=== PATIENT | female | born 1985 | race Caucasian/White ===

== ENCOUNTER 2019-03-08 05:36 | Inpatient (IN) ==
[2019-02-22 14:57] LABS: Basophils # 0.1 10*3/uL (0.0-0.2); Basophils % 0.6 % (0.0-0.8); Eosinophils # 0.3 10*3/uL (0.0-0.87); Eosinophils % 3.2 % (0.00-10.9); Hematocrit 39.9 VOL% (35.7-47.0); Immature Granulocytes % 0.2 %; Immature Granulocytes Absolute 0.02 #; Lymphocytes # 3.1 10*3/uL (1.4-4.0); Lymphocytes % 32.8 % (21.3-54.2); Mean Corpuscular HGB Conc 32.6 GM/DL (32-36); Mean Corpuscular Volume 89.5 FL (87-102); Mean Platelet Volume 10.4 FL (9.6-12.0); Neutrophils % 56.2 % (38.7-73.9); Platelet Count 302 T/CUMM (130-400); Red Blood Count 4.46 MC/CUMM (3.8-5.5); Red Cell Distribution Width 12.2 % (9.3-17.3); White Blood Count 9.3 T/CUMM (4-12)
[2019-02-22 15:13] LABS: Apearance,Urine Slightly Hazy (Clear); Bacteria,Urine Occasional /HPF (Few); Bilirubin,Urine Negative (Negative); Blood, Urine Moderate mg/dL (Negative); Glucose,Urine (UA) Negative (Negative); Ketones,Urine Negative (Negative); Mucus,Urine Occasional /LPF (Occasional); Nitrite,Urine Negative (Negative); Protein,Urine Negative; RBC,Urine 7 /HPF (0-4); Squamous Epithelial Cell,Urine Few /HPF (0-10); Urine Color Yellow (Yellow); Urine Specific Gravity 1.017 (1.001-1.035); Urine Urobilinogen < 2.0 EU/DL (0.2-1.0); WBC,Urine 4 /HPF (0-6)
[2019-02-22 15:15] LABS: Calcium 8.3 MG/DL (8.5-10.1); Osmolality,Calculated 283.3 MOS/KG (273-304)
[2019-03-08] MEDS ORDERED: ALVIMOPAN 12 MG CAPSULE ONE (06:05)
[2019-03-08] MEDS ORDERED: cefTRIAXone 1,000 MG VIAL ONE (06:05)
[2019-03-08] MEDS ORDERED: ALVIMOPAN 12 MG CAPSULE PO ONE (06:30)
[2019-03-08] MEDS ORDERED: cefTRIAXone 1,000 MG in SYRINGE 1 EACH IV ONE (06:30)
[2019-03-08] MEDS ORDERED: LACTATED RINGERS 1,000 ML IV SCH (07:00)
[2019-03-08] MEDS ORDERED: diphenhydrAMINE 50 MG/1 ML VIAL IV PRN (09:13)
[2019-03-08] MEDS ORDERED: HYDROmorphone PCA 30 MG/30 ML SYRINGE IV SCH (09:30)
[2019-03-08 09:43] LABS: Apearance,Urine CLEAR (Clear); Bilirubin,Urine Negative (Negative); Blood, Urine Small mg/dL (Negative); Glucose,Urine (UA) Negative (Negative); Ketones,Urine Negative (Negative); Nitrite,Urine Negative (Negative); Protein,Urine Negative; RBC,Urine 1 /HPF (0-4); Urine Color Colorless (Yellow); Urine Specific Gravity 1.006 (1.001-1.035); Urine Urobilinogen < 2.0 EU/DL (0.2-1.0); WBC,Urine <1 /HPF (0-6)
[2019-03-08] MEDS ORDERED: propofoL 200 MG/20 ML VIAL IV ONE (09:44)
[2019-03-08] MEDS ORDERED: SEVOFLURANE 1 UNIT/15 MINUTE INH ONE (09:44)
[2019-03-08] MEDS ORDERED: ONDANSETRON 4 MG/2 ML VIAL IV PRN (09:44)
[2019-03-08] MEDS ORDERED: LIDOCAINE 2% 5 ML VIAL ONE (09:44)
[2019-03-08] MEDS ORDERED: MIDAZOLAM 2 MG/2 ML VIAL ONE (09:45)
[2019-03-08] MEDS ORDERED: DEXAMETHASONE 4 MG/1 ML VIAL ONE (09:45)
[2019-03-08] MEDS ORDERED: fentaNYL 100 MCG/2 ML VIAL ONE (09:45)
[2019-03-08] MEDS ORDERED: ePHEDrine 50 MG/ML AMP ONE (09:45)
[2019-03-08] MEDS ORDERED: GLYCOPYRROLATE 0.4 MG/2 ML VIAL ONE (09:46)
[2019-03-08] MEDS ORDERED: PHENYLEPHRINE 1 MG/10 ML SYRINGE IV ONE (09:46)
[2019-03-08] MEDS ORDERED: NEOSTIGMINE 10 MG/10 ML VIAL ONE (09:46)
[2019-03-08] MEDS ORDERED: ACETAMINOPHEN 1,000 MG/100 ML VIAL IV ONE (09:46)
[2019-03-08] MEDS ORDERED: ROCURONIUM 100 MG/10 ML VIAL IV ONE (09:46)
[2019-03-08] MEDS ORDERED: LACTATED RINGERS 1,000 ML IV ONE (09:46)
[2019-03-08] MEDS ORDERED: HYDROmorphone 2 MG/1 ML VIAL ONE (09:50)
[2019-03-08] MEDS ORDERED: ONDANSETRON 4 MG/2 ML VIAL ONE (09:50)
[2019-03-08] MEDS: HYDROmorphone 2 MG/1 ML VIAL IV PRN ×3 (09:55→10:40)
[2019-03-08] MEDS ORDERED: HYDROmorphone PCA 30 MG/30 ML SYRINGE IV ONE ×4 (10:16→10:42)
[2019-03-08] MEDS: NORGESTIMATE ETHINYL ESTRADIOL PO SCH (13:09)
[2019-03-08] MEDS: DEXTROSE 5% NACL 0.45% 1,000 ML IV SCH ×2 (13:09→23:12)
[2019-03-08] MEDS: ONDANSETRON 4 MG/2 ML VIAL IV PRN ×2 (16:39→22:10)
[2019-03-09 06:35] LABS: Basophils % 0.2 % (0.0-0.8); Eosinophils % 0.1 % (0.00-10.9); Hematocrit 36.6 VOL% (35.7-47.0); Hemoglobin 11.5 GM/DL (12.0-16.0); Immature Granulocytes % 0.5 %; Immature Granulocytes Absolute 0.07 #; Lymphocytes # 2.3 10*3/uL (1.4-4.0); Lymphocytes % 15.8 % (21.3-54.2); Mean Corpuscular HGB Conc 31.4 GM/DL (32-36); Mean Corpuscular Volume 93.1 FL (87-102); Mean Platelet Volume 10.7 FL (9.6-12.0); Monocytes % 8.8 % (1.7-12.7); Neutrophils % 74.6 % (38.7-73.9); Platelet Count 259 T/CUMM (130-400); Red Blood Count 3.93 MC/CUMM (3.8-5.5); Red Cell Distribution Width 12.4 % (9.3-17.3); White Blood Count 14.7 T/CUMM (4-12)
[2019-03-09 06:49] LABS: Calcium 8.2 MG/DL (8.5-10.1); Osmolality,Calculated 272.8 MOS/KG (273-304)
[2019-03-09] MEDS ORDERED: oxyCODONE/ACETAMINOPHEN 5-325 MG TABLET PO PRN ×2 (08:22→08:28)
[2019-03-09] MEDS: NORGESTIMATE ETHINYL ESTRADIOL PO SCH (09:49)
[2019-03-09] MEDS: DEXTROSE 5% NACL 0.45% 1,000 ML IV SCH ×2 (09:49→20:05)
[2019-03-10 08:37] VITALS: BP 144/83
[2019-03-10] MEDS: NORGESTIMATE ETHINYL ESTRADIOL PO SCH (08:59)
[2019-03-14 12:30] LABS: Stone Source Kidney
== END 2019-03-10 11:10 | disposition home or self-care (01) | DRG 661 ==
LOC: N.OR 05:36 → N.SDSINP 05:36 → N.5E 11:17
PROVIDERS: ADMIT Urology; ATTEND Urology

== ENCOUNTER 2021-08-16 00:16 | Inpatient (IN) ==
[2021-08-16] MEDS ORDERED: TERBUTALINE 1 MG/1 ML VIAL SUBCUT PRN (00:41)
[2021-08-16] MEDS ORDERED: OXYTOCIN/LR 20 UNIT/1,000 ML BAG IV ONE ×3 (00:41→19:00)
[2021-08-16] MEDS ORDERED: LACTATED RINGERS 250 ML IV ONE (00:41)
[2021-08-16] MEDS ORDERED: TRANEXAMIC ACID 1,000 MG in SODIUM CHLORIDE 0.9% 100 ML IV PRN ×2 (00:41→19:00)
[2021-08-16] MEDS ORDERED: METHYLERGONOVINE 0.2 MG/1 ML AMP IM PRN (00:41)
[2021-08-16] MEDS ORDERED: CARBOPROST TROMETHAMINE 250 MCG/ML AMP IM PRN (00:41)
[2021-08-16] MEDS ORDERED: ACETAMINOPHEN 500 MG TABLET PO PRN (00:41)
[2021-08-16] MEDS ORDERED: ONDANSETRON 4 MG/2 ML VIAL IV PRN ×2 (00:41→18:34)
[2021-08-16] MEDS ORDERED: BUTORPHANOL 2 MG/ML VIAL IV PRN (00:41)
[2021-08-16] MEDS ORDERED: LACTATED RINGERS 500 ML IV PRN (00:41)
[2021-08-16] MEDS ORDERED: MEPERIDINE 50 MG/1 ML VIAL IV PRN (00:41)
[2021-08-16] MEDS ORDERED: LIDOCAINE 1% 50 ML VIAL MISC INJ ONE (00:41)
[2021-08-16] MEDS ORDERED: miSOPROStoL 200 MCG TABLET RECTAL PRN (00:41)
[2021-08-16] MEDS ORDERED: AMPICILLIN INJ 2,000 MG in SODIUM CHLORIDE 0.9% 100 ML IV ONE (00:49)
[2021-08-16] MEDS: LACTATED RINGERS 1,000 ML IV SCH ×2 (01:29→18:06)
[2021-08-16 01:34] LABS: Basophils % 0.3 % (0.0-0.8); Eosinophils # 0.3 10*3/uL (0.0-0.87); Eosinophils % 2.9 % (0.00-10.9); Hematocrit 33.6 VOL% (35.7-47.0); Hemoglobin 11.1 GM/DL (12.0-16.0); Immature Granulocytes % 0.6 %; Immature Granulocytes Absolute 0.05 #; Lymphocytes # 2.4 10*3/uL (1.4-4.0); Mean Corpuscular Volume 90.8 FL (87-102); Monocytes # 0.7 10*3/uL (0.11-0.8); Monocytes % 7.8 % (1.7-12.7); Neutrophils % 61.4 % (38.7-73.9); Platelet Count 185 T/CUMM (130-400); Red Cell Distribution Width 14.8 % (9.3-17.3); White Blood Count 8.9 T/CUMM (4-12)
[2021-08-16 01:44] LABS: Albumin 2.6 G/DL (3.4-5.0); Bilirubin,Total 0.4 MG/DL (0.20-1.00); Calcium 10.1 MG/DL (8.5-10.1); Osmolality,Calculated 270.8 MOS/KG (273-304); Potassium 3.7 MMOL/L (3.5-5.1)
[2021-08-16] MEDS: AMPICILLIN INJ 1,000 MG in SODIUM CHLORIDE 0.9% 100 ML IV SCH ×4 (05:06→18:06)
[2021-08-16] MEDS ORDERED: ePHEDrine 50 MG/ML VIAL IV PRN (13:20)
[2021-08-16] MEDS ORDERED: PROMETHAZINE 25 MG/1 ML VIAL IM ONE (13:20)
[2021-08-16] MEDS ORDERED: diphenhydrAMINE 50 MG/1 ML VIAL IV PRN ×2 (13:20)
[2021-08-16] MEDS ORDERED: NALOXONE 0.4 MG/ML VIAL IV PRN (13:20)
[2021-08-16] MEDS ORDERED: hydrOXYzine HCL 25 MG/1 ML VIAL IM PRN (13:20)
[2021-08-16] MEDS ORDERED: FAMOTIDINE 20 MG/2 ML VIAL IV ONE (13:20)
[2021-08-16] MEDS ORDERED: LACTATED RINGERS 1,000 ML IV ONE (13:20)
[2021-08-16] MEDS ORDERED: CITRIC ACID/SODIUM CITRATE 30 ML UDCUP PO ONE (13:20)
[2021-08-16] MEDS ORDERED: OXYTOCIN/LR 20 UNIT/1,000 ML BAG IV SCH (13:30)
[2021-08-16] MEDS ORDERED: fentaNYL 2 MCG/ROPIV 0.2% EPID 100 ML EPIDURAL SCH (13:30)
[2021-08-16 15:53] LABS: Mucus,Urine Occasional /LPF (Occasional); RBC,Urine 519 /HPF (0-4); Squamous Epithelial Cell,Urine Occasional /HPF (0-10); Urine Appearance Slightly Cloudy (Clear); Urine Color Yellow (Yellow)
[2021-08-16 15:54] LABS: Bilirubin,Urine Negative (Negative); Blood, Urine Large mg/dL (Negative); Glucose,Urine (UA) Negative (Negative); Ketones,Urine 80 mg/dL (Negative); Nitrite,Urine Negative (Negative); Protein,Urine Negative (Negative); Urine Urobilinogen 0.2 eU/dL (<2.0)
[2021-08-16] MEDS ORDERED: miSOPROStoL 200 MCG TABLET ONE (17:00)
[2021-08-16] MEDS ORDERED: TRANEXAMIC ACID 1,000 MG/10 ML VIAL ONE (17:00)
[2021-08-16] MEDS ORDERED: METHYLERGONOVINE 0.2 MG/1 ML AMP ONE (17:01)
[2021-08-16] MEDS ORDERED: SODIUM CHLORIDE 0.9% 0 ML IV ONE (17:01)
[2021-08-16] MEDS ORDERED: CARBOPROST TROMETHAMINE 250 MCG/ML AMP IM ONE (17:01)
[2021-08-16 18:27] LABS: Cord Arterial Blood HCO3 18.6 MMOL/L
[2021-08-16 18:30] LABS: Cord Venous Blood HCO3 20.8 MMOL/L; Cord Venous Blood PCO2 34.7 MMHG; Cord Venous Blood PO2 37.6
[2021-08-16] MEDS ORDERED: BISACODYL 10 MG SUPP RECTAL PRN (18:34)
[2021-08-16] MEDS ORDERED: BENZOCAINE 20%/MENTHOL 0.5% SPRAY 56 GM CAN TOP PRN (18:34)
[2021-08-16] MEDS ORDERED: DIPH/TET/ACEL PERT BOOSTER VACCINE 0.5 ML VIAL IM ONE (18:34)
[2021-08-16] MEDS ORDERED: MEASLES/MUMPS/RUBELLA VACCINE 0.5 ML VIAL SUBCUT ONE (18:34)
[2021-08-16] MEDS ORDERED: ACETAMINOPHEN 325 MG TABLET PO PRN (18:34)
[2021-08-16] MEDS ORDERED: LANOLIN 50% CREAM 0.3 OZ TUBE TOP PRN (18:34)
[2021-08-16] MEDS ORDERED: oxyCODONE/ACETAMINOPHEN 5-325 MG TABLET PO PRN ×2 (18:34)
[2021-08-16] MEDS ORDERED: WITCH HAZEL PADS 100/JAR TOP PRN (18:34)
[2021-08-16] MEDS ORDERED: HYDROCORTISONE 2.5% RECTAL CREAM 30 GM TUBE TOP PRN (18:34)
[2021-08-16] MEDS ORDERED: RHO(D) IMMUNE GLOBULIN 300 MCG SYRINGE IM ONE (19:00)
[2021-08-16] MEDS: IBUPROFEN 800 MG TABLET PO PRN (19:49)
[2021-08-16] MEDS: DOCUSATE SODIUM 100 MG CAPSULE PO SCH (21:13)
[2021-08-17 05:33] LABS: Basophils # 0.1 10*3/uL (0.0-0.2); Basophils % 0.4 % (0.0-0.8); Eosinophils # 0.2 10*3/uL (0.0-0.87); Eosinophils % 2.1 % (0.00-10.9); Hematocrit 28.1 VOL% (35.7-47.0); Hemoglobin 9.4 GM/DL (12.0-16.0); Immature Granulocytes % 0.5 %; Immature Granulocytes Absolute 0.06 #; Lymphocytes # 2.1 10*3/uL (1.4-4.0); Lymphocytes % 18.1 % (21.3-54.2); Mean Corpuscular HGB Conc 33.5 GM/DL (32-36); Mean Corpuscular Volume 91.5 FL (87-102); Mean Platelet Volume 10.5 FL (9.6-12.0); Monocytes # 0.9 10*3/uL (0.11-0.8); Monocytes % 8.3 % (1.7-12.7); Neutrophils % 70.6 % (38.7-73.9); Platelet Count 173 T/CUMM (130-400); Red Blood Count 3.07 MC/CUMM (3.8-5.5); Red Cell Distribution Width 14.9 % (9.3-17.3); White Blood Count 11.3 T/CUMM (4-12)
[2021-08-17] MEDS: FERROUS SULFATE 325 MG TABLET PO SCH ×2 (08:15→21:13)
[2021-08-17] MEDS: DOCUSATE SODIUM 100 MG CAPSULE PO SCH ×2 (08:15→21:13)
[2021-08-17] MEDS: IBUPROFEN 800 MG TABLET PO PRN ×2 (08:16→15:55)
[2021-08-18 09:33] VITALS: BP 118/62
== END 2021-08-18 11:45 | disposition home or self-care (01) | DRG 768 ==
LOC: N.LD 00:16 → N.OB 21:45
PROVIDERS: ADMIT Obstetrics & Gynecology; ATTEND Obstetrics & Gynecology

== ENCOUNTER 2022-04-18 11:16 | Inpatient (IN) ==
[2022-04-18 12:41] LABS: Basophils % 0.2 % (0.0-0.8); Mean Corpuscular Volume 88.6 FL (87-102); Mean Platelet Volume 9.9 FL (9.6-12.0); Red Cell Distribution Width 12.3 % (9.3-17.3)
[2022-04-18 12:51] LABS: Hematocrit 38.9 VOL% (35.7-47.0); Immature Granulocytes % 0.5 %; Immature Granulocytes Absolute 0.07 #; Lymphocytes # 1.4 10*3/uL (1.4-4.0); Lymphocytes % 9.6 % (21.3-54.2); Mean Corpuscular HGB Conc 33.4 GM/DL (32-36); Monocytes # 1.5 10*3/uL (0.11-0.8); Neutrophils % 79.7 % (38.7-73.9); Platelet Count 274 T/CUMM (130-400); Red Blood Count 4.39 MC/CUMM (3.8-5.5); White Blood Count 14.55 T/CUMM (4-12)
[2022-04-18 13:18] LABS: Albumin 3.7 G/DL (3.4-5.0); Bilirubin,Total 0.8 MG/DL (0.20-1.00); Calcium 8.8 MG/DL (8.5-10.1); Osmolality,Calculated 276.8 MOS/KG (273-304); Potassium 3.5 MMOL/L (3.5-5.1); Total Protein 7.8 G/DL (6.4-8.2)
[2022-04-18] MEDS: DEXTROSE 5% NACL 0.45% 1,000 ML IV SCH ×4 (13:43→23:43)
[2022-04-18] MEDS: PROMETHAZINE 25 MG/1 ML VIAL IM PRN ×2 (13:45→18:00)
[2022-04-18] MEDS: HYDROmorphone 1 MG/1 ML SYRINGE IM PRN ×2 (13:55→18:00)
[2022-04-18] MEDS: ONDANSETRON 4 MG/2 ML VIAL IV PRN (22:55)
[2022-04-19] MEDS: PROMETHAZINE 25 MG/1 ML VIAL IM PRN ×3 (01:31→14:19)
[2022-04-19] MEDS: ONDANSETRON 4 MG/2 ML VIAL IV PRN (04:06)
[2022-04-19] MEDS: HYDROmorphone 1 MG/1 ML SYRINGE IM PRN ×5 (04:07→23:59)
[2022-04-19] MEDS: DEXTROSE 5% NACL 0.45% 1,000 ML IV SCH ×2 (06:30→16:55)
[2022-04-19] MEDS: TAMSULOSIN 0.4 MG CAPSULE PO SCH (08:25)
[2022-04-19] MEDS: METOCLOPRAMIDE 10 MG/2 ML VIAL IV SCH ×3 (14:17→23:48)
[2022-04-20] MEDS: DEXTROSE 5% NACL 0.45% 1,000 ML IV SCH (02:14)
[2022-04-20] MEDS: PROMETHAZINE 25 MG/1 ML VIAL IM PRN ×3 (04:16→12:50)
[2022-04-20 06:01] LABS: Calcium 8.2 MG/DL (8.5-10.1); Osmolality,Calculated 270.1 MOS/KG (273-304); Potassium 3.4 MMOL/L (3.5-5.1)
[2022-04-20] MEDS: METOCLOPRAMIDE 10 MG/2 ML VIAL IV SCH ×3 (06:03→17:40)
[2022-04-20] MEDS: TAMSULOSIN 0.4 MG CAPSULE PO SCH ×3 (08:20→22:07)
[2022-04-20] MEDS: HYDROmorphone 1 MG/1 ML SYRINGE IM PRN ×4 (08:20→21:58)
[2022-04-20] MEDS ORDERED: oxyCODONE/ACETAMINOPHEN 5-325 MG TABLET PO PRN (11:08)
[2022-04-20] MEDS ORDERED: DOCUSATE SODIUM 100 MG CAPSULE PO PRN (11:17)
[2022-04-20] MEDS ORDERED: metFORMIN 500 MG TABLET PO SCH (11:30)
[2022-04-20] MEDS: SODIUM CHLORIDE 0.9% 1,000 ML IV SCH (13:06)
[2022-04-20] MEDS: POTASSIUM CHLORIDE RIDER 10 MEQ/100 ML PREMIX IV SCH ×4 (13:06→14:32)
[2022-04-20] MEDS: ONDANSETRON 4 MG/2 ML VIAL IV PRN (17:05)
[2022-04-20] MEDS ORDERED: BISACODYL 5 MG TABLET PO ONE (20:00)
[2022-04-20] MEDS: PANTOPRAZOLE 40 MG VIAL IV SCH (21:59)
[2022-04-21] MEDS: METOCLOPRAMIDE 10 MG/2 ML VIAL IV SCH ×5 (00:12→23:57)
[2022-04-21] MEDS: HYDROmorphone 1 MG/1 ML SYRINGE IM PRN ×4 (02:44→17:08)
[2022-04-21] MEDS: SODIUM CHLORIDE 0.9% 1,000 ML IV SCH ×2 (04:26→22:32)
[2022-04-21 05:57] LABS: Calcium 8.7 MG/DL (8.5-10.1); Osmolality,Calculated 270.1 MOS/KG (273-304); Potassium 3.8 MMOL/L (3.5-5.1)
[2022-04-21] MEDS ORDERED: SCOPOLAMINE 1.5 MG PATCH TRANSDERM ONE (07:56)
[2022-04-21] MEDS: PANTOPRAZOLE 40 MG VIAL IV SCH (08:53)
[2022-04-21] MEDS ORDERED: propofoL 200 MG/20 ML VIAL IV ONE (10:05)
[2022-04-21] MEDS ORDERED: ONDANSETRON 4 MG/2 ML VIAL ONE (10:05)
[2022-04-21] MEDS ORDERED: LIDOCAINE 2% 5 ML VIAL ONE (10:05)
[2022-04-21] MEDS ORDERED: MIDAZOLAM 2 MG/2 ML VIAL ONE (10:05)
[2022-04-21] MEDS ORDERED: DEXAMETHASONE 4 MG/1 ML VIAL ONE (10:05)
[2022-04-21] MEDS ORDERED: fentaNYL 100 MCG/2 ML VIAL ONE (10:05)
[2022-04-21] MEDS ORDERED: LACTATED RINGERS 1,000 ML IV SCH (11:30)
[2022-04-21] MEDS: ONDANSETRON 4 MG/2 ML VIAL IV PRN ×2 (17:08→21:30)
[2022-04-21] MEDS: TAMSULOSIN 0.4 MG CAPSULE PO SCH (20:33)
[2022-04-22] MEDS: ONDANSETRON 4 MG/2 ML VIAL IV PRN ×2 (05:03→21:03)
[2022-04-22] MEDS: METOCLOPRAMIDE 10 MG/2 ML VIAL IV SCH (06:11)
[2022-04-22] MEDS: SODIUM CHLORIDE 0.9% 1,000 ML IV SCH ×3 (07:20→21:45)
[2022-04-22] MEDS: PANTOPRAZOLE 40 MG VIAL IV SCH (08:15)
[2022-04-22 11:10] LABS: Albumin 3.6 G/DL (3.4-5.0); Bilirubin,Total 0.7 MG/DL (0.20-1.00); Calcium 8.6 MG/DL (8.5-10.1); Potassium 3.2 MMOL/L (3.5-5.1); Total Protein 8.1 G/DL (6.4-8.2)
[2022-04-22] MEDS: POTASSIUM CHLORIDE RIDER 10 MEQ/100 ML PREMIX IV PRN ×4 (12:23→16:00)
[2022-04-22] MEDS: TAMSULOSIN 0.4 MG CAPSULE PO SCH (21:03)
[2022-04-23 08:52] LABS: Albumin 3.5 G/DL (3.4-5.0); Bilirubin,Total 0.7 MG/DL (0.20-1.00); Calcium 9.1 MG/DL (8.5-10.1); Osmolality,Calculated 268.2 MOS/KG (273-304); Potassium 3.4 MMOL/L (3.5-5.1); Total Protein 7.8 G/DL (6.4-8.2)
[2022-04-23 09:37] LABS: Basophils # 0.1 10*3/uL (0.0-0.2); Basophils % 0.5 % (0.0-0.8); Eosinophils # 0.2 10*3/uL (0.0-0.87); Eosinophils % 1.5 % (0.00-10.9); Hematocrit 39.8 VOL% (35.7-47.0); Hemoglobin 13.3 GM/DL (12.0-16.0); Immature Granulocytes % 0.3 %; Immature Granulocytes Absolute 0.03 #; Lymphocytes # 2.6 10*3/uL (1.4-4.0); Lymphocytes % 26.5 % (21.3-54.2); Mean Corpuscular HGB Conc 33.4 GM/DL (32-36); Mean Corpuscular Volume 88.1 FL (87-102); Mean Platelet Volume 10.2 FL (9.6-12.0); Monocytes # 0.7 10*3/uL (0.11-0.8); Monocytes % 7.1 % (1.7-12.7); Neutrophils % 64.1 % (38.7-73.9); Platelet Count 343 T/CUMM (130-400); Red Blood Count 4.52 MC/CUMM (3.8-5.5); White Blood Count 9.77 T/CUMM (4-12)
[2022-04-23] MEDS ORDERED: LACTATED RINGERS 1,000 ML IV SCH (10:00)
[2022-04-23] MEDS: PANTOPRAZOLE 40 MG VIAL IV SCH (10:09)
[2022-04-23 11:12] LABS: Mucus,Urine Few /LPF (Occasional); Protein,Urine >=300 mg/dL (Negative); RBC,Urine 10968 /HPF (0-4); Squamous Epithelial Cell,Urine Occasional /HPF (0-10); Urine Appearance Turbid (Clear); Urine Color Red (Yellow); Urine Specific Gravity 1.025 (1.001-1.035)
[2022-04-23 11:13] LABS: Bilirubin,Urine Small mg/dL (Negative); Blood, Urine Large mg/dL (Negative); Glucose,Urine (UA) Negative (Negative); Ketones,Urine 80 mg/dL (Negative); Nitrite,Urine Positive (Negative)
[2022-04-23 17:01] VITALS: BP 138/75
== END 2022-04-23 18:00 | disposition home or self-care (01) | DRG 660 ==
LOC: N.2W → N.2E 04-21 11:47
PROVIDERS: ADMIT Urology; ATTEND Urology